=== PATIENT | male | born 1940 | race Caucasian/White ===

== ENCOUNTER 2019-02-03 10:22 | Inpatient (IN) | payer MEDICARE ==
[2019-02-03] VITALS (7 sets, daily range): BP systolic 144–184; BP diastolic 67–98
[~2019-02-03] VITALS: Ht 185.4 cm; Wt 98.0 kg
[~2019-02-03 10:22] MED LIST: AMLO10TA80 PO; ASPI-1159 PO; CIPR-263 PO; CLOP75TA15 PO; DICL100G31 TOP; DICY10CA88 PO; FERR-63 PO; HEPARIN SODIUM 1,000 UNIT/1ML VIAL IV ONE; LEVE500T19 PO; LOSA50TA20 MT; NICARDIPINE 100MCG/ML 10ML VIAL (CATH LAB) IV ONE; NITR0.4T SL; NITROGLYCERIN 50MCG/ML 10ML VIAL (CATH LAB) IV ONE
[2019-02-03] MEDS ORDERED: ISOS60TA4 MT (11:24)
[2019-02-03] MEDS ORDERED: POTA20TA12 MT (11:24)
[2019-02-03] MEDS ORDERED: IODIXANOL 320MG/ML 100 ML BOTTLE IV ONE ×2 (11:40→13:08)
[2019-02-03] MEDS ORDERED: LIDOCAINE HCL 1% 20ML VIAL (Pyxis) INJ ONE (11:40)
[2019-02-03] MEDS ORDERED: FENTANYL CITRATE/PF 50MCG/ML 2ML VIAL ONE (11:40)
[2019-02-03] MEDS ORDERED: MIDAZOLAM HCL 2 MG/2 ML VIAL ONE (11:40)
[2019-02-03] MEDS ORDERED: IOHEXOL-300 100 ML BOTTLE ONE (12:52)
[2019-02-03] MEDS ORDERED: HYDRALAZINE 20MG/ML VIAL ONE (13:11)
[2019-02-03] MEDS ORDERED: CLOPIDOGREL 75MG TABLET ONE (13:15)
[2019-02-03] MEDS ORDERED: ASPIRIN 325MG EC TABLET PO ONE (13:15)
[2019-02-03] MEDS ORDERED: ONDANSETRON HCL 4MG/2ML INJ IV PRN (13:45)
[2019-02-03] MEDS ORDERED: ATROPINE SULFATE 1MG/10ML SYR IV PRN (13:45)
[2019-02-03] MEDS: ACETAMINOPHEN 325MG TABLET PO PRN ×2 (15:17→21:03)
[2019-02-03] MEDS ORDERED: HYDRALAZINE 20MG/ML VIAL IV PRN (20:00)
[2019-02-03] MEDS ORDERED: CLONIDINE 0.1MG TABLET PO PRN (20:00)
[2019-02-03] MEDS ORDERED: MORPHINE SULFATE 4 MG/ML CPJ (NOT FOR IM USE) IV SCH (21:45)
[2019-02-03] MEDS ORDERED: LOSARTAN POTASSIUM 50 MG TABLET PO SCH (21:45)
[2019-02-03] MEDS ORDERED: CLONIDINE 0.1MG TABLET PO SCH (21:45)
[2019-02-03] MEDS ORDERED: NITROGLYCERIN OINT 1GM/INCH UDPKT TD SCH (21:45)
[2019-02-03] MEDS ORDERED: NITROGLYCERIN 0.4MG TABLET SL SL SCH (21:45)
[2019-02-04] VITALS (8 sets, daily range): BP systolic 115–168; BP diastolic 54–73
[2019-02-04] MEDS: ACETAMINOPHEN 325MG TABLET PO PRN (04:33)
[2019-02-04 07:25] LABS: BASOPHILS % 0.6 % (0.0-2.0); EOSINOPHILS % 2.1 % (0.0-5.0); HEMOGLOBIN. 12.2 g/dL (14.0-18.0); LYMPHOCYTES % 9.7 % (20.0-50.0); MEAN CORPUSCULAR HEMOGLOBIN 28.3 pg (28.0-32.0); MEAN CORPUSCULAR VOLUME 86.3 fL (80.0-94.0); MEAN PLATELET VOLUME 9.1 fl (7.4-10.4); MONOCYTES % 9.1 % (2.0-8.0); NEUTROPHILS % 78.5 % (40.0-76.0); PLATELET 179 x1000/uL (130-400); RED BLOOD CELL COUNT 4.29 mill/uL (4.7-6.1); RED CELL DISTRIBUTION WIDTH 15.1 % (11.6-14.6)
[2019-02-04 07:42] LABS: CHLORIDE 109 mEq/L (98-107)
[2019-02-04] MEDS ORDERED: ASPIRIN 325MG TABLET PO SCH (09:00)
[2019-02-04] MEDS ORDERED: CLOPIDOGREL 75MG TABLET PO SCH (09:00)
== END 2019-02-04 13:20 | disposition home or self-care (01) | DRG 247 ==
LOC: CCL 10:22 → 6WST 10:23 → 3WST 14:22
PROVIDERS: ADMIT Specialist; ATTEND Specialist
PROC: 4A023N7 Measurement of Cardiac Sampling and Pressure, Left Heart, Percutaneous Approach (ICD-10-PCS; principal; 2019-02-03)
PROC: 027034Z Dilation of Coronary Artery, One Artery with Drug-eluting Intraluminal Device, Percutaneous Approach (ICD-10-PCS; 2019-02-03)
PROC: B2111ZZ Fluoroscopy of Multiple Coronary Arteries using Low Osmolar Contrast (ICD-10-PCS; 2019-02-03)
PROC: 4A033BC Measurement of Arterial Pressure, Coronary, Percutaneous Approach (ICD-10-PCS; 2019-02-03)
DX: I25.10 Atherosclerotic heart disease of native coronary artery without angina pectoris (principal); E78.5 Hyperlipidemia, unspecified; I45.10 Unspecified right bundle-branch block; I08.0 Rheumatic disorders of both mitral and aortic valves; I11.9 Hypertensive heart disease without heart failure; Z79.02 Long term (current) use of antithrombotics/antiplatelets; Z79.82 Long term (current) use of aspirin; Z86.718 Personal history of other venous thrombosis and embolism; Z95.5 Presence of coronary angioplasty implant and graft; Z79.899 Other long term (current) drug therapy
CPT/HCPCS: 36415; 80048; 85347; 92928; 93005; 93454; 93571; C1725; C1760; C1769; C1874; C1887; C1893; J0360; J1644; J2250; J2270; J3010; J3490; Q9967

== ENCOUNTER 2021-01-30 20:39 | Inpatient (IN) | payer MEDICARE ==
[~2021-01-30] VITALS: Ht 185.4 cm; Wt 94.4 kg
[~2021-01-30 20:39] MED LIST changes: -AMLO10TA80 PO; -ASPI-1159 PO; +ASPI-1497 PO; -CIPR-263 PO; -CLOP75TA15 PO; -DICL100G31 TOP; -DICY10CA88 PO; -FERR-63 PO; -HEPARIN SODIUM 1,000 UNIT/1ML VIAL IV ONE; +ISOS60TA76 MT; -LOSA50TA20 MT; +LOSA50TA41 MT; -NICARDIPINE 100MCG/ML 10ML VIAL (CATH LAB) IV ONE; -NITROGLYCERIN 50MCG/ML 10ML VIAL (CATH LAB) IV ONE; +POTA20TA12 MT
[2021-01-30 23:14] LABS: BASOPHILS % 0.9 % (0.0-2.0); EOSINOPHILS % 2.7 % (0.0-5.0); HEMATOCRIT. 32.2 % (42.0-52.0); HEMOGLOBIN. 10.7 g/dL (14.0-18.0); MEAN CORPUSCULAR HEMOGLOBIN 28.8 pg (28.0-32.0); MEAN CORPUSCULAR VOLUME 86.3 fL (80.0-94.0); MEAN PLATELET VOLUME 8.5 fl (7.4-10.4); MONOCYTES % 10.9 % (2.0-8.0); NEUTROPHILS % 61.5 % (40.0-76.0); PLATELET 164 x1000/uL (130-400); RED BLOOD CELL COUNT 3.73 mill/uL (4.7-6.1); RED CELL DISTRIBUTION WIDTH 15.7 % (11.6-14.6)
[2021-01-30 23:23] LABS: PROTHROMBIN TIME 11.1 sec (9.6-11.0)
[2021-01-30] MEDS ORDERED: LORAZEPAM 2MG/ML CPJ IV PRN (23:30)
[2021-01-30] MEDS ORDERED: HYDROCODONE/ACETAMINOPHEN 5/325MG TABLET PO PRN (23:30)
[2021-01-30] MEDS ORDERED: MAGNESIUM/ALUMINUM HYDROXIDE/SIMETHICONE 30ML UDC PO PRN (23:30)
[2021-01-30] MEDS ORDERED: DIPHENHYDRAMINE 50MG/ML VIAL IV PRN (23:30)
[2021-01-30] MEDS ORDERED: MORPHINE SULFATE 2 MG/ML CPJ (NOT FOR IM USE) IV PRN (23:30)
[2021-01-30] MEDS ORDERED: IPRATROPIUM/ALBUTEROL 0.5-3(2.5)MG/3ML NEB HHN PRN (23:30)
[2021-01-30] MEDS ORDERED: CLONIDINE 0.1MG TABLET PO PRN (23:30)
[2021-01-30] MEDS ORDERED: ONDANSETRON HCL 4MG/2ML INJ IV PRN (23:30)
[2021-01-30] MEDS ORDERED: DOCUSATE SODIUM 100MG CAPSULE PO PRN (23:30)
[2021-01-30] MEDS ORDERED: HYDRALAZINE 20MG/ML VIAL IV PRN (23:30)
[2021-01-30] MEDS ORDERED: GUAIFENESIN 200MG/10ML SUGAR FREE UDC PO PRN (23:30)
[2021-01-31] VITALS (12 sets, daily range): BP systolic 135–183; BP diastolic 57–109
[2021-01-31] MEDS: DEXT 5%/0.45% NACL 1000ML 1,000 ML IV SCH ×2 (00:07→01:51)
[2021-01-31] MEDS: SODIUM CHLORIDE 0.45% 1,000 ML IV ONE ×2 (05:19→05:21)
[2021-01-31] MEDS: SODIUM CHLORIDE 0.9% INJ 3ML FLUSH IVF SCH ×3 (06:16→23:00)
[2021-01-31 07:02] LABS: PARTIAL THROMBOPLASTIN TIME 25.9 sec (23.4-31.0); PROTHROMBIN TIME 11.1 sec (9.6-11.0)
[2021-01-31 07:04] LABS: BASOPHILS % 1.1 % (0.0-2.0); EOSINOPHILS % 3.3 % (0.0-5.0); HEMATOCRIT. 30.5 % (42.0-52.0); HEMOGLOBIN. 10.1 g/dL (14.0-18.0); LYMPHOCYTES % 28.3 % (20.0-50.0); MEAN CORPUSCULAR HEMOGLOBIN 28.5 pg (28.0-32.0); MEAN CORPUSCULAR VOLUME 86.5 fL (80.0-94.0); MEAN PLATELET VOLUME 8.8 fl (7.4-10.4); MONOCYTES % 11.6 % (2.0-8.0); NEUTROPHILS % 55.7 % (40.0-76.0); PLATELET 151 x1000/uL (130-400); RED BLOOD CELL COUNT 3.52 mill/uL (4.7-6.1); RED CELL DISTRIBUTION WIDTH 15.6 % (11.6-14.6)
[2021-01-31 07:09] LABS: CHLORIDE 113 mEq/L (98-107)
[2021-01-31] MEDS ORDERED: GENTAMICIN SULF 40MG/ML 2ML VIAL ONE (10:07)
[2021-01-31] MEDS ORDERED: LIDOCAINE HCL 1% 20ML VIAL (Pyxis) INJ ONE (10:07)
[2021-01-31] MEDS ORDERED: GENTAMICIN/NS IRRIGATION 500 ML IR ONE (10:07)
[2021-01-31] MEDS ORDERED: IODIXANOL 320MG/ML 100 ML BOTTLE IV ONE (10:12)
[2021-01-31] MEDS ORDERED: PROPOFOL 200MG/20ML VIAL IV ONE (10:47)
[2021-01-31] MEDS ORDERED: FENTANYL CITRATE/PF 50MCG/ML 2ML VIAL ONE (10:47)
[2021-01-31] MEDS ORDERED: PHENYLEPHRINE HCL 10 MG/ML 1ML (IV VIAL) IV ONE (11:41)
[2021-01-31] MEDS ORDERED: ONDANSETRON HCL 4MG/2ML INJ ONE (11:41)
[2021-01-31] MEDS ORDERED: LIDOCAINE HCL/PF 1% 10 MG/ML 5ML VIAL ONE (11:42)
[2021-01-31] MEDS ORDERED: HYDROCODONE/ACETAMINOPHEN 5/325MG TABLET PO PRN (12:00)
[2021-01-31] MEDS ORDERED: NITROGLYCERIN 0.4MG TABLET SL SL PRN (12:15)
[2021-01-31] MEDS ORDERED: MIDAZOLAM HCL 5 MG/5 ML VIAL ONE (12:16)
[2021-01-31] MEDS ORDERED: FENTANYL CITRATE/PF 50MCG/ML 5ML VIAL ONE (12:16)
[2021-01-31] MEDS ORDERED: *PATIENT'S OWN MEDICATION STORAGE XX SCH (14:30)
[2021-01-31] MEDS: ACETAMINOPHEN 325MG TABLET PO PRN (18:02)
[2021-01-31] MEDS: METOPROLOL TARTRATE 25MG TABLET PO SCH (21:32)
[2021-02-01] VITALS (9 sets, daily range): BP systolic 131–156; BP diastolic 60–79
[2021-02-01] MEDS: ACETAMINOPHEN 325MG TABLET PO PRN ×2 (00:11→11:03)
[2021-02-01] MEDS: SODIUM CHLORIDE 0.9% INJ 3ML FLUSH IVF SCH ×2 (05:37→14:00)
[2021-02-01 07:14] LABS: CHLORIDE 112 mEq/L (98-107)
[2021-02-01 07:18] LABS: BASOPHILS % 0.8 % (0.0-2.0); EOSINOPHILS % 1.6 % (0.0-5.0); HEMATOCRIT. 33.4 % (42.0-52.0); HEMOGLOBIN. 11.2 g/dL (14.0-18.0); LYMPHOCYTES % 19.6 % (20.0-50.0); MEAN CORPUSCULAR HEMOGLOBIN 29.1 pg (28.0-32.0); MEAN CORPUSCULAR VOLUME 86.9 fL (80.0-94.0); MEAN PLATELET VOLUME 8.7 fl (7.4-10.4); MONOCYTES % 10.3 % (2.0-8.0); NEUTROPHILS % 67.7 % (40.0-76.0); PLATELET 149 x1000/uL (130-400); RED BLOOD CELL COUNT 3.84 mill/uL (4.7-6.1); RED CELL DISTRIBUTION WIDTH 15.6 % (11.6-14.6)
[2021-02-01] MEDS: METOPROLOL TARTRATE 25MG TABLET PO SCH (08:29)
[2021-02-01] MEDS ORDERED: ISOSORBIDE MONONITRATE 60MG TABLET SR 24HR PO SCH (09:00)
[2021-02-01] MEDS ORDERED: LOSARTAN POTASSIUM 50 MG TABLET PO SCH (09:00)
[2021-02-01] MEDS ORDERED: POTASSIUM CHLORIDE 20MEQ TABLET SR PO SCH (09:00)
[2021-02-01] MEDS ORDERED: ASPIRIN 81MG EC TABLET PO SCH (09:00)
== END 2021-02-01 15:58 | disposition home or self-care (01) | DRG 243 ==
LOC: ER 20:39 → ENRESERV 23:44 → 6WST 01-31 00:26 → 3WST 01-31 13:40
PROVIDERS: ADMIT Internal Medicine; ATTEND Internal Medicine
PROC: B5171ZZ Fluoroscopy of Left Subclavian Vein using Low Osmolar Contrast (ICD-10-PCS; principal; 2021-01-31)
PROC: 0JH606Z Insertion of Pacemaker, Dual Chamber into Chest Subcutaneous Tissue and Fascia, Open Approach (ICD-10-PCS; 2021-01-31)
PROC: 02HK3JZ Insertion of Pacemaker Lead into Right Ventricle, Percutaneous Approach (ICD-10-PCS; 2021-01-31)
PROC: 02H63JZ Insertion of Pacemaker Lead into Right Atrium, Percutaneous Approach (ICD-10-PCS; 2021-01-31)
DX: I49.5 Sick sinus syndrome (principal); I45.2 Bifascicular block; I31.3 Pericardial effusion (noninflammatory); D63.8 Anemia in other chronic diseases classified elsewhere; E78.5 Hyperlipidemia, unspecified; F02.80 Dementia in other diseases classified elsewhere, unspecified severity, without behavioral disturbance, psychotic disturbance, mood disturbance, and anxiety; G30.9 Alzheimer's disease, unspecified; Z20.822 Contact with and (suspected) exposure to COVID-19; G40.909 Epilepsy, unspecified, not intractable, without status epilepticus; I10 Essential (primary) hypertension; I25.10 Atherosclerotic heart disease of native coronary artery without angina pectoris; Z96.643 Presence of artificial hip joint, bilateral; Z79.899 Other long term (current) drug therapy; Z86.718 Personal history of other venous thrombosis and embolism; Z95.5 Presence of coronary angioplasty implant and graft; Z79.82 Long term (current) use of aspirin; R55 Syncope and collapse; Z87.11 Personal history of peptic ulcer disease; Z87.438 Personal history of other diseases of male genital organs
CPT/HCPCS: 33208; 36415; 71045; 75820; 80048; 83735; 84443; 84484; 85025; 87426; 93005; 93306; 99291; A4565; C1785; C1893; C1898; J0360; J1580; J2250; J2370; J2405; J2704; J3010; J3490; J7040; Q9967